=== PATIENT | male | born 1955 | race Caucasian/White ===

== ENCOUNTER 2018-05-19 02:33 | Observation (INO) | payer BC, SELFPAY ==
[2018-05-19] VITALS (15 sets, daily range): BP systolic 93–159; BP diastolic 52–95; PULSE 75–104; RESP 14–20; TEMP 36.2–37.6; O2SAT 94–100; BMI 36.2
--- NOTE | 2018-05-19 02:40 | ED.ABDPAIN ---
HPI - Abdominal Pain General Chief Complaint: Abdominal Pain Stated Complaint: BAD ADBOMINAL PAIN Time Seen by Provider: 05/19/18 02:35 Source: patient and family Mode of arrival: ambulatory Limitations: no limitations History of Present Illness HPI narrative: 62-year-old retired male presents to the emergency department with severe epigastric pain and radiation to his back since late last evening. He denies provocation or palliation. He states that is sharp and stabbing and has been largely persistent since its onset. He did have an episode of gallbladder pain in 2014 but did not have surgical intervention. Patient denies nausea, vomiting or diarrhea. He had 2 normal bowel movements yesterday. He denies the use of alcohol. He had some chamomile tea at midnight MD complaint: abdominal pain Onset (ago): hour(s) Pain Consistency: constant Location: epigastric Severity: moderate Quality: stabbing Radiation: back Migration to: no migration Relieving factors: nothing Exacerbating factors: nothing Associated symptoms: denies other symptoms Related Data Home Medications Medication Instructions Recorded Confirmed dicyclomine 20 mg PO 05/19/18 Allergies Allergy/AdvReac Type Severity Reaction Status Date / Time wheat Allergy Unknown Verified 05/19/18 02:48 Review of Systems Review of Systems All systems reviewed & are unremarkable except as noted in HPI and below Constitutional Denies chills, Denies fever(s), Denies lethargy and Denies weakness Eyes Denies change in vision, Denies eye discharge, Denies irritation and Denies loss of vision ENT Ears, Nose, Mouth, and Throat: Denies change in voice, Denies neck pain and Denies sore throat Cardiovascular Denies chest pain, Denies irregular heart rhythm, Denies lightheadedness, Denies palpitations, Denies dyspnea, Denies dyspnea on exertion and Denies orthopnea Respiratory Denies cough, Denies dyspnea, Denies dyspnea on exertion and Denies wheezing Gastrointestinal Gastrointestinal: Reports abdominal pain, Denies change in bowel habits, Denies diarrhea, Denies nausea and Denies vomiting Genitourinary Denies hematuria, Denies flank pain, Denies urinary incontinence and Denies urinary urgency Musculoskeletal Denies neck pain Integumentary/Breasts Denies pruritus, Denies erythema, Denies rash and Denies wounds Neurologic Denies confusion, Denies loss of vision and Denies weakness Psychiatric Denies anxiety, Denies confusion, Denies depression, Denies homicidal ideation and Denies suicidal ideation Endocrine Denies palpitations Hematologic/Lymphatic Denies easy bruising Allergic/Immunologic Denies wheezing [facility] Medical History Diabetes (Acute) AUGUSTUS (obstructive sleep apnea) (Acute) Obesity (Acute) Surgical History Hx of tonsillectomy (Acute) Exam Narrative Exam Narrative: 62-year-old male is obviously uncomfortable, clutching his upper belly Initial Vital Signs Initial Vital Signs: Vital Signs Temperature 97.5 F L 05/19/18 02:41 Pulse Rate 75 05/19/18 02:41 Respiratory Rate 20 05/19/18 02:41 Blood Pressure 159/95 H 05/19/18 02:41 Pulse Oximetry 100 05/19/18 02:41 Const General: cooperative, well developed and in distress Nutritional Appearance: obese Orientation: alert, awake, oriented x3 and not confused HENMT Head: normal to inspection Nose: external nose normal Face and sinus: normal facial exam Eyes General: appearance normal, both eyes and all related structures Eyelids: eyelids normal Conjunctivae: conjunctivae normal Sclera: sclerae normal Pupils: PERRL EOM: EOM intact bilaterally Resp Effort & Inspection: normal respiratory effort, able to speak in complete sentences, no respiratory distress and no use of accessory muscles Auscultation: clear to auscultation bilaterally, no rales, no rhonchi and no wheezes Cardio Rate: regular rate Rhythm: regular rhythm GI Inspection: distended Palpation: soft, no hepatosplenomegaly, No guarding, No pulsatile mass and tender Auscultation: normal bowel sounds Back/Spine/Pelvis Back: No CVA tenderness Cervical Spine: cervical ROM normal and No pain with cervical ROM Thoracic/Lumbar Spine: thoracic and lumbar spine normal to inspection Skin General: no rashes or lesions noted, No jaundice and No petechiae Extrem General: full ROM, no clubbing, cyanosis or edema, no pedal edema and no calf tenderness Psych Appearance: well kempt Mental Status: mental status grossly normal Attitude: cooperative Thought Content: normal and suicidality Judgment: judgment good Course Orders Ordered: ED Orders 05/19/18 02:40 Complete Blood Count AUTO DIFF Stat Comprehensive Metabolic Panel Stat Lipase Stat 05/19/18 02:57 US abdomen complete Stat XR acute abdomen series Stat 05/19/18 04:17 EKG-12 Lead Stat Discontinued Medications Sodium Chloride (Normal Saline 0.9%) 1,000 mls @ 150 mls/hr IV CONT PRAVEEN Last Admin: 05/19/18 03:18 Dose: 150 mls/hr Consultations Consultation #1: upon receipt of US, call to Dr. Maharaj (Gen. Surg) whom happily accepts patient onto service. Recommends NPO, Zosyn, IVF at 100mL/hr, antiemetics Vital Signs - 8 hr 05/19/18 02:41 05/19/18 03:00 Temperature 97.5 F L 97.5 F L Pulse Rate 75 75 Respiratory Rate 20 20 Blood Pressure [Right Arm] 159/95 H Pulse Oximetry 100 100 MDM - Abdominal Pain Differential Diagnosis Differential diagnosis: Likely abdominal pain, acute appendicitis, calculus of kidney, constipation, gastroenteritis, pancreatitis and small bowel obstruction Medical Records Attestation: I reviewed the patient's medical records. Lab Data Attestation: I reviewed the patient's lab results. Result diagrams: 05/19/18 02:40 05/19/18 02:40 Lab Results 05/19/18 05/19/18 Range/Units 02:40 02:40 WBC 8.6 (4.5-11.0) X10^3/uL RBC 5.26 (4.5-5.9) X10^6/uL Hgb 17.0 (13.5-17.5) g/dL Hct 49.5 (41-53) % MCV 94.2 (80-100) fL MCH 32.3 (26-34) PG MCHC 34.3 (30-36) % RDW 12.7 (11.6-14.8) % Plt Count 159 (150-400) X10^3/uL Neut % (Auto) 80.3 H (50-75) % Lymph % (Auto) 13.5 L (25-40) % [place] % (Auto) 5.8 (3-14) % Eos % (Auto) 0.4 L (2-4) % Baso % (Auto) 0.0 (0-2) % Neut # (Auto) 6900 H (1139-9915) /uL Sodium 139 (137-145) mmol/L Potassium 4.1 (3.4-5.1) mmol/L Chloride 98 (98-107) mmol/L Carbon Dioxide 27 (22-32) mmol/L BUN 15 (9-20) mg/dL Creatinine 0.80 (0.66-1.25) mg/dL Estimated GFR > 60.0 (>60) mL/min BUN/Creatinine Ratio 18.8 (6-22) Glucose 212 H (80-110) mg/dL Calcium 9.4 (8.4-10.2) mg/dL Total Bilirubin 1.0 (0.2-1.3) mg/dL AST 30 (17-59) IU/L ALT 31 (21-72) IU/L Alkaline Phosphatase 70 (38-126) U/L Total Protein 8.2 (6.3-8.2) g/dL Albumin 4.7 (3.5-5.0) g/dL Globulin 3.5 (1.7-4.1) g/dL Albumin/Globulin Ratio 1.3 (1.0-2.8) Lipase 150 (23-300) U/L Point of care testing: Urine Dip Bedside Urine Glucose 250 mg/dl Bedside Urine Bilirubin - Negative Bedside Urine Ketone +/- 5 Urine Specific Jackson 1.030 Bedside Urine Occult Blood - Negative Bedside Urine pH 5.5 Bedside Urine Protein - Negative Bedside Urine Urobilinogen - Negative Bedside Urine Nitrite - Negative Bedside Urine Leukocytes - Negative Esterase Imaging Data US - abdomen: Radiologist's impression: Cholelithiasis, gallbladder wall thickening and sonographic Traore sign Abdominal x-ray: Attestation: I personally reviewed and interpreted this imaging study as follows: My impression: Large amount of stool, nonobstructive pattern Discharge Plan Departure Patient Disposition: Admitted As Inpatient Clinical Impression: Acute cholecystitis Admit Date/Time: 05/19/18 04:13 Admit Provider: Agustin Maharaj
--- NOTE | 2018-05-19 02:57 | DI.RAD.S_ITS ---
PROCEDURE: XR ACUTE ABDOMEN SERIES INDICATIONS: Abdominal pain, distension TECHNIQUE: One view chest and two views of the abdomen were acquired. COMPARISON: None. FINDINGS: Surgical changes and devices: None. Chest: Lungs are clear. Heart size is normal. No pleural effusions. No pneumoperitoneum. Abdomen: Bowel gas pattern is non-obstructive. A large amount of fecal material in the cecum and rectum. No suspicious calcifications. Visualized solid organ contours appear normal. Bones: No suspicious bony lesions. IMPRESSION: Nonobstructive bowel gas pattern. There is, however, a large amount of fecal material in the cecum and rectum. Dictated by: Wiliam Angelo M.D. on 05/19/2018 at 8:19 Approved by: Wilaim Angelo M.D. on 05/19/2018 at 8:20
--- NOTE | 2018-05-19 02:57 | DI.US.S_ITS ---
PROCEDURE: US ABDOMEN COMPLETE INDICATIONS: severe epigastric pain with radiation to the back TECHNIQUE: Real-time scanning was performed of the abdominal and retroperitoneal organs, with image documentation. COMPARISON: Merged With [facility], CT, ABDOMEN/PELVIS WITH CONTRAST, 03/01/2015, 17:10. Merged With [facility], US, ABDOMEN COMPLETE, 03/01/2015, 14:27. FINDINGS: Liver: Liver is normal in size and homogeneous in echotexture. Gallbladder: There are multiple gallstones and gallbladder sludge. Gallbladder wall is thickened measuring up to 6 mm. No pericholecystic fluid collection. Positive sonographic Traore sign. Biliary ducts: Intrahepatic bile ducts are non-dilated. Extrahepatic bile duct caliber measures 5.5 mm. Normal is 6-7 mm or less in diameter, or 10 mm or less post-cholecystectomy. Pancreas: Visualized portions of the pancreas are sonographically normal. Spleen: Spleen is mildly enlarged measuring 13 cm in length. Kidneys: Kidneys are normal in size and echotexture. Right kidney measures 13.1 cm long; left kidney measures 12.6 cm long. No hydronephrosis or nephrolithiasis. No solid masses. Bilateral simple appearing cysts in kidneys are noted. There is a 2.0 cm cyst in the superior pole of the right kidney. A 2.3 cm cyst is noted in the interpole of the left kidney. Aorta: Visualized aorta is normal in caliber at less than 3 cm. Iliacs: Proximal common iliac arteries are normal in caliber at less than 2.5 cm. IVC: Intrahepatic inferior vena cava is patent. Miscellaneous: No free abdominal fluid. IMPRESSION: 1. Cholelithiasis. There is gallbladder wall thickening and sonographic Traore's sign suspicious for acute cholecystitis. 2. Borderline splenomegaly. This finding is nonspecific and may be secondary to infectious, inflammatory or neoplastic etiology. Recommend clinical correlation and follow up. 3. Bilateral simple appearing renal cysts. No significant discrepancy with the overnight babysitter radiology preliminary report. Dictated by: Wiliam Angelo M.D. on 05/19/2018 at 8:20 Approved by: Wiliam Angelo M.D. on 05/19/2018 at 8:27
[2018-05-19] MEDS: SODIUM CHLORIDE 0.9% 1,000 ML 150 ML IV (03:18)
[2018-05-19 03:22] LABS: Add Manual Diff / Slide Review NO; Eosinophils Percent Auto 0.4 % (2-4); Hematocrit 49.5 % (41-53); Lymphocytes Percent Auto 13.5 % (25-40); Mean Corpuscular HGB Conc 34.3 % (30-36); Mean Corpuscular Hemoglobin 32.3 PG (26-34); Mean Corpuscular Volume 94.2 fL (80-100); Monocytes Percent Auto 5.8 % (3-14); Neutrophils Absolute Auto 6900 /uL (3000-5900); Neutrophils Percent Auto 80.3 % (50-75); Platelet Count 159 X10^3/uL (150-400); Red Blood Cell Count 5.26 X10^6/uL (4.5-5.9); Red Cell Distribution Width 12.7 % (11.6-14.8); White Blood Cell Count 8.6 X10^3/uL (4.5-11.0)
[2018-05-19 03:37] LABS: Alanine Aminotransferase 31 IU/L (21-72); Albumin 4.7 g/dL (3.5-5.0); Albumin Globulin Ratio 1.3 (1.0-2.8); Alkaline Phosphatase 70 U/L (38-126); Aspartate Aminotransferase 30 IU/L (17-59); BUN Creatinine Ratio 18.8 (6-22); Blood Urea Nitrogen 15 mg/dL (9-20); Calcium 9.4 mg/dL (8.4-10.2); Carbon Dioxide 27 mmol/L (22-32); Chloride 98 mmol/L (98-107); Estimated Glomerular Filt Rate > 60.0 mL/min (>60); Globulin 3.5 g/dL (1.7-4.1); Glucose 212 mg/dL (80-110); HEMOLYSIS < 15 (0-50); Lipase 150 U/L (23-300); Potassium 4.1 mmol/L (3.4-5.1); Sodium 139 mmol/L (137-145); Total Protein 8.2 g/dL (6.3-8.2)
[2018-05-19] MEDS: HYDROMORPHONE 0.5 MG INJ 0.25 MG IV (04:48)
[2018-05-19] MEDS: SODIUM CHLORIDE 0.9% 1,000 ML 100 ML IV ×2 (05:10→12:49)
[2018-05-19] MEDS: PIPERACILLIN-TAZO 3.375 GM/50 ML FROZ.PIGGY IV ×4 (05:46→23:57)
--- NOTE | 2018-05-19 06:40 | PC.NURSE ---
Admitted to room 221 for abdminal pain R/T Acute Choleycystitis. NPO @ this time. NS @ 100 cc/hr. Oriented to his room, call light, TV & bed controls. Pt. requested to see a prior to surgery. Called clinical research monitor, but pt. was able to contact [employer] & he talked to him. Pt. reported I talked to Father Jean Claude & he will come & see me this morning. Will report to day RN.
--- NOTE | 2018-05-19 07:15 | PC.NURSE ---
Father Jean Claude from [facility] here to see Pt.
--- NOTE | 2018-05-19 08:46 | PC.NURSE ---
AM NOTE - awake, wearing cpap, 02 sat 98% ra, bs dim, moderately anxious re surgery, discussed concerns with pt and spouse, declines any anxiety medication, taken xanax in past, prefers to have limited medications, including narcotics, earlier 0.5mg iv dilaudid in er provided some relief, pain mid epigastric area 7 on scale 0/10, no nausea, occassional belching, +bt, standby assist to br and voided, prefers to be oob and sat in chair, positioned comfortably, pacu called and informed pt and spouse of surg this am, checked cbg no at 215, per pt was on meds several years ago but no longer req per his md, npo confirmed.
[2018-05-19] MEDS: LACTATED RINGERS 1,000 ML 42 ML IV ×2 (09:53→11:53)
--- NOTE | 2018-05-19 10:20 | SUR.HOLD ---
pt refused midazolam offered, drs aware of glucose, iv site to l a/c wnl.
--- NOTE | 2018-05-19 10:53 | SUR.OPER ---
Supine on padded OR bed, head on pillow, arms secured on padded arm boards at <90 degrees abduction, legs uncrossed, safety belt at thigh, tape over blanket over lower legs. Padded footboard at feet per surgeon.
[2018-05-19] MEDS: BUPIVACAINE 0.5% W/ EPI (PF) 30 ML VIAL INJ (11:11)
--- NOTE | 2018-05-19 11:12 | PC.NURSE ---
Addendum entered by Sally Lantigua R.N. 05/19/18 14:37: ADDENUM - pt had asked his spouse for his necklace and watch; however, she left prior to returning the items. Tele replaced, dozing in chair with cpap on 02 sat 96%. Original Note: Addendum entered by Sally Lantigua R.N. 05/19/18 14:24: POST OP ARRIVAL - returned room via bed, alert, moderately restless and anxious, states pain 3 on scale 0/10 abd, declines any narcotic or medication at this time, no ice pack now, prefers to stand up from bed, and with standby assist and use fww, stood at bedside and then transferred to chair, 02 sat 94% ra, denies nausea, abd distended, telfa /op site over x 4 small incisions each with a small spot blood, no leakage, hillary ice chips in pacu and given water now, will start clear liq, advised to start slowly, later req that he ambulate and resin painter assisted with iv pole and using fww to make sure steady, ambul out into hallway and then ret to chair to doze. Pacu reported that pt did void after the surgery and cbg prior to tsf was 206. His cpap was returned and spouse returned his watch and necklace. Original Note: AM NOTE - pt is alert, wearing cpap, when removed sat 98% ra, pain mid epigastric area 7 on scale 0/10, bt present, moderately anxious regarding surgery and medications, does not want any anti anxiety med or pain medications now, prefers to keep to a minimum, cbg checked this am at 215, pacu provided with info, cpap machine, 20g l ac flushed, spouse has pt metal watch and a gold colored necklace, taken or via bed.
--- NOTE | 2018-05-19 12:40 | SUR.PHASEI ---
pt arrived to pacu restless and moving all around. Pt awake and denying pain. Dr Resendez at bedside. blood sugar was 206 MD aware. Pt up out of bed with assistance and standing pt voided. lungs clear. Pt put on his c-pap and took off his c-pap. pt very restless..RN trying to talk to pt and calm. him . pt finally calmed down sitting on edge . Will transport pt upstairs.
[2018-05-20] VITALS: BP 123/71; PULSE 94; RESP 18; TEMP 37.6; O2SAT 95
--- NOTE | 2018-05-20 02:08 | PC.NURSE ---
alert/oriented. Has slight discomfort carlitos need for intervention. Ambulated to bathroom with SBA, gait slow/steady. Abd. puncture wound dressings are CDI. Denies any needs.
[2018-05-20] MEDS: SODIUM CHLORIDE 0.9% 1,000 ML 100 ML IV (03:02)
--- NOTE | 2018-05-20 03:46 | PC.NURSE ---
Patient crying, he is upset about his service dog that a couple of days ago. Patient expressed his feelings and thoughts and has stopped crying. Denies any needs for pain medication. Requesting something for his bowels, will pass on to day shift to get a stool softner.
[2018-05-20 04:01] VITALS: BP 120/73; PULSE 82; RESP 19; TEMP 37.3; O2SAT 96
[2018-05-20] MEDS: PIPERACILLIN-TAZO 3.375 GM/50 ML FROZ.PIGGY IV ×2 (04:51→11:17)
--- NOTE | 2018-05-20 08:08 | OP_ITS ---
DATE OF SERVICE: 05/19/2018 PREOP DIAGNOSES: Acute suppurative cholecystitis and cholelithiasis. POSTOP DIAGNOSES: Severe acute cholecystitis and cholelithiasis with acute and chronic infection of the gallbladder. PROCEDURE: Laparoscopic cholecystectomy. SURGEON: Agustin Maharaj MD DESCRIPTION OF PROCEDURE: The patient was given a general endotracheal anesthetic, prepped and draped in sterile fashion with exposure of the upper abdomen, and preoperatively identified during a surgical pause. The Optiview Xcel Visiport was placed under direct vision in the peritoneal cavity, a 5 mm port under direct vision using the laparoscope. There was no visceral injury. The gallbladder was acutely infected and inflamed. The omentum was stuck to the anterior wall. Photographs of it were taken. Three additional right subcostal ports were placed under direct vision. The gallbladder was dissected away from the adhesions from the acute infectious process. In order to grasp the tense gallbladder, I had to aspirate it, which I did, and then I was able to elevate it, and the cholecystoduodenal ligament was dissected down to the critical view of Calot's Gamaliel, clearly showing cystic duct, cystic artery, and Calot's node. The cystic duct was closed with multiple clips, divided leaving several with the patient. There was no bile leak. The cystic artery was closed with multiple clips, divided, leaving several with the patient. There was no bleeding. The gallbladder was then further elevated and dissected away from the liver bed. The serosa was extremely thickened, 4 or 5 mm, making the dissection quite difficult. I was able to dissect it away with excellent hemostasis using the Bovie cautery. The gallbladder and its contents were completely removed. The operative site was irrigated with 2 L of sterile saline and aspirated dry. There was no bleeding. No bile leak. Trocars were removed under direct vision, and there was no bleeding. The fascia and the 12 mm epigastric port were closed with 0 Vicryl. The skin was stapled and all incisions. A sterile dressing was applied. The procedure was well tolerated. Andrzej Mao - Minal/sanam doc#: [id number]/job#: [id number] dd: 05/19/2018 11:38:00 dt: 05/19/2018 13:56:00 DICTATING MD/COPIES TO: Agustin Maharaj MD COPIES MNE: DERICK
--- NOTE | 2018-05-20 08:10 | HP_ITS ---
DATE OF SERVICE: 05/19/2018 PREOPERATIVE HISTORY AND PHYSICAL HISTORY OF PRESENT ILLNESS: This 62-year-old white male patient comes in to the emergency room in the middle of the night. They phoned me at 4:00 this morning. We admitted him with IV antibiotic therapy for acute cholecystitis, cholelithiasis, gallbladder wall thickening, pericholecystic fluid, all noted on an emergency room ultrasound. Historically, the patient, 2 years ago, had an attack. Right upper quadrant pain. Sludge was noted. He refused surgery at that time and now he is back with acute cholecystitis. The patient understands that we will do laparoscopic cholecystectomy this morning. He is moderately obese, and I explained that he may need open cholecystectomy. He understands and his understands, and we will proceed with surgery this morning. PAST MEDICAL HISTORY: The patient is a diet-controlled diabetic. Blood sugar this morning in the ER was 215. White count 8600, hemoglobin 17. The patient's complaint that brought him in this time was just severe epigastric and right subcostal pain radiating into the back with some nausea but no vomiting. So he is being prepared for a laparoscopic cholecystectomy. PAST MEDICAL HISTORY: Again, diet-controlled diabetes. Denies hypertension or heart disease. MEDICATIONS: Takes no medications at home. ALLERGIES: HAS NO KNOWN ALLERGIES TO DRUGS. HE IS ALLERGIC TO WHEAT, HE SAYS, SO HE MAY BE A GLUTEN-FREE DIET. REVIEW OF SYSTEMS: Denies exertional chest pain or unusual shortness of breath. GI: As mentioned in HPI. : Negative. NEUROLOGIC: No strokes or TIAs or seizures. PHYSICAL EXAMINATION VITAL SIGNS: He is afebrile. Blood pressure 140/83. Heart rate 86. Respirations 16. HEENT: Ears, nose, and throat are normal. NECK: No adenopathy. CHEST: Lungs are clear. HEART: Regular rate and rhythm. No murmur. ABDOMEN: Tender in the right subcostal area. No masses were palpated. He is moderately obese. No organomegaly is noted. Remaining physical is unremarkable. DIAGNOSIS: Acute cholecystitis, cholelithiasis. Also has a history of obstructive sleep apnea. We will discuss this with Anesthesia to determine the best way to intubate the patient. Andrzej Mao - /mariia/selina doc#: [id number]/job#: [id number] dd: 05/19/2018 09:19:00 dt: 05/19/2018 15:29:00 DICTATING MD/COPIES TO: Agustin Maharaj MD COPIES MNE: DERICK
[2018-05-20 08:45] VITALS: BP 126/69; PULSE 81; RESP 16; TEMP 37.1; O2SAT 98
[2018-05-20] MEDS: OXYCODONE/ACETAMINOPHEN 5/325 TABLET 1 TAB PO ×2 (09:49→14:11)
[2018-05-20] MEDS: BISACODYL 10 MG SUPP PR (10:04)
--- NOTE | 2018-05-20 11:27 | PC.NURSE ---
Addendum entered by Sally Lantigua R.N. 05/20/18 14:39: DC - when spouse arrived, given percocet po x 1 tab for abd and shoulder discomfort 3 on scale 0/10, script for percocet was provided with dc instructions, pt has already arranged his own fu appt, has all belongings including cell phone, chargers, cpap and cords, clothing, water bottle, shoes. Tsf to and escorted by trench pipe layer to spouse's car. Original Note: AM NOTE - alert, seated chair for breakfast, states abd pain 3 on scale 0/10 and feel bloating and discomfort, given prune juice and diet 7 up this am, has passed flatus, bt hypo, some referred shoulder discomfort, declined medication initially and when in this am, plan to dc home later and felt ibuprofen would be sufficient, did take 1/2 percocet tab, given dulcolax suppository, pt did have a small bm and flatus, also stated he would now like a script for a couple of percocets for home, as stated earlier he would be in surgery this am, fax sent to surg.
[2018-05-20 14:04] VITALS: BP 132/72; PULSE 89; RESP 17; TEMP 36.8; O2SAT 96
== END 2018-05-20 14:30 | disposition home or self-care (01) ==
LOC: ED 04:12 → AC 05:18
PROVIDERS: Admitting Provider Surgery; Emergency Provider Emergency Medicine; PCP Family Medicine; Visit Provider Surgery
PROC: 0FT44ZZ Resection of Gallbladder, Percutaneous Endoscopic Approach (ICD-10-PCS; CPT 47562; principal; 2018-05-19 09:45)
DX: K80.12 Calculus of gallbladder with acute and chronic cholecystitis without obstruction (principal); E11.9 Type 2 diabetes mellitus without complications
CPT/HCPCS: 47562; 36591; 74022; 76700; 80053; 81003; 82962; 83690; 85025; 96361; 96374; 99220; 99281; 99285; G0378; J0330; J1170; J1885; J2250; J2543; J2704; J3010

== ENCOUNTER → 2018-11-10 19:33 | Outpatient (CLI) | payer BC, SELFPAY ==
[2018-05-19 05:21] VITALS: BMI 36.2
== END ==
PROVIDERS: PCP Family Medicine; Visit Provider Physician Assistant
DX: L02.91 Cutaneous abscess, unspecified (principal)
CPT/HCPCS: 87070; 87075; 87077; 87147; 87186; 87205

== ENCOUNTER → 2025-03-23 11:04 | Outpatient (CLI) | payer MEDICARE, OTHER, SELFPAY ==
[2018-05-19 05:21] VITALS: BMI 36.2
--- NOTE | 2025-03-23 11:06 | DI.US.S_ITS ---
PROCEDURE: US EXTREMITY NONVASC LOWER RT INDICATIONS: lump in mid R leg, assess for etiology TECHNIQUE: Real-time scanning was performed of the right lower leg, with image documentation. COMPARISON: None. FINDINGS: Focused ultrasound examination of right lower leg at patient's reported area of palpable lump shows a simple appearing cystic structure within subcutaneous soft tissue measures 1.3 x 1.4 x 0.6 cm in size. No internal vascularity is seen. Small calcifications are noted in more inferior aspect of right lower leg soft tissue measures up to 4 mm in size. IMPRESSION: Simple appearing cystic structure in right anterior lower leg soft tissue at the area of concern as above. Additional small soft tissue calcifications seen in right anterior lower leg soft tissue which may represent sequelae from remote injury. Dictated by: Dio Vallejo M.D. on 03/23/2025 at 15:48 Approved by: Dio Vallejo M.D. on 03/23/2025 at 15:49
[2025-03-26 11:09] LABS: Fecal Immunochemical Test Negative (Negative)
== END ==
PROVIDERS: PCP Family Medicine; Referring Provider Family Medicine; Visit Provider Family Medicine
DX: D17.9 Benign lipomatous neoplasm, unspecified (principal); Z12.11 Encounter for screening for malignant neoplasm of colon
CPT/HCPCS: 76882; 82274